=== PATIENT | female | born 2000 | race Caucasian/White ===

== ENCOUNTER 2022-10-27 22:15 | Emergency (ER) | payer MEDICAID, SELFPAY ==
[2022-10-27 22:17] VITALS: BP 108/62; PULSE 92; RESP 14; TEMP 36.6; O2SAT 99; BMI 25.5
[2022-10-27 22:46] LABS: Mucous, Urine 0 SEEN /hpf (<or=2+); Red Blood Cells-Urine 0 SEEN /hpf (0-5); White Blood Cells 0 SEEN /hpf (0-5)
[2022-10-27 22:49] LABS: Color, Urine Yellow (Yellow); Glucose, Dipstick Normal (Normal); Ketone-Dipstick Negative (Negative); Leukocyte Esterase-Dipstick Negative /ul (Negative); Nitrite-Dipstick Negative (Negative); Occult Blood-Urine Negative /ul (Negative); Protein-Dipstick 15 mg/dl (Negative); Specific Gravity, Urine 1.015 (1.002-1.030); Urine Bilirubin Dipstick Negative (Negative); Urine Clarity Sl. Cloudy (Clear); Urine Urobilinogen Normal (Normal)
[2022-10-27 23:00] LABS: Amorphous Sediment 1+; Bacteria 1+ /hpf (None Seen); Squamous Epithelial Cells - UA 0-5 SEEN /hpf (5-10)
--- NOTE | 2022-10-27 23:00 | US_ITS ---
INDICATION: RT FLANK PAIN, UTI, EXAMINATION: Ultrasound US Kidney(s) complete (eg, kidneys and bladder) TECHNIQUE: Issa scale and color doppler images were obtained of the kidneys. COMPARISON: None. FINDINGS: RIGHT KIDNEY: 12.7 x 7.6 x 5.2 cm. Mild hydronephrosis. No shadowing calculus, focal lesion or perinephric collection is demonstrated. LEFT KIDNEY: 11.2 x 6.6 x 4.5 cm. There is no hydronephrosis. No shadowing calculus, focal lesion or perinephric collection is demonstrated. URINARY BLADDER: No acute abnormality. US/Kidney and Bladder IMPRESSION: Mild right hydronephrosis. Electronically Signed: Cristi Patel MD at 0:32 EDT ,
[2022-10-27] MEDS: Ondansetron ODT 4 MG Tablet 8 MG PO (23:05)
[2022-10-27] MEDS: Acetaminophen 500 MG Tablet 1000 MG PO (23:05)
--- NOTE | 2022-10-27 23:33 | EX.ED.DYSGE1 ---
HPI History of Present Illness Chief Complaint: Flank Pain Informant: patient Onset/Context/Timing Onset: Weeks (2) Context: Gradual Onset Timing: Continuous Narrative Narrative: Patient has had urinary symptoms for 2 weeks, foul smell, burning, frequency, urgency and the feeling that she is unable to empty her bladder. Also has pain in her right low back and feels like it is kidney pain, in addition to vaginal discharge that feels like prior yeast infections, it started at similar time to all of the symptoms although she has had it after starting antibiotics for urine infections in the past. She is around 17 weeks, not feeling the baby move as much today. No vaginal bleeding. When she developed these symptoms, she was in drug rehab at [facility], they checked a urinalysis and was infected and started her on an antibiotic but she was unable to get the prescription and finish the course when she got out. She has had some nausea with the and taking Zofran for that, no vomiting, no fevers or chills. No gross hematuria. [facility] Medical History Opioid abuse Home Medications buprenorphine HCl 8 mg sublingual tablet See Rx Instructions sublingual DAILY 10/27/22 [History Last Taken 10/27/22] ondansetron 4 mg disintegrating tablet 4 mg PO DAILY 10/27/22 [History Last Taken 10/27/22] clotrimazole 1 % vaginal cream (Clotrimazole-7) 1 appful vaginal QHS 7 days #45 grams 10/28/22 [Rx Last Taken Unknown] Allergy/AdvReac Type Severity Reaction Status Date / Time No Known Allergies Allergy Verified 10/27/22 22:59 Social History Smoking Status: Current every day smoker tobacco type: cigarettes ROS ROS ED Constitutional Constitutional ED: Denies chills or fever(s) Eyes Eyes: Denies change in vision or diplopia ENT ENT ED: Denies rhinorrhea or sore throat Cardiovascular Cardiovascular: Denies chest pain or palpitations Respiratory/Chest Respiratory/Chest: Denies cough or dyspnea Gastrointestinal Gastrointestinal: Reports nausea; Denies abdominal pain, diarrhea or vomiting Genitourinary Genitourinary ED: Reports as per HPI, dysuria and urinary frequency; Denies hematuria Musculoskeletal Musculoskeletal: Reports back pain; Denies neck pain Integumentary Denies abscess or rash Neurologic Neurologic: Denies headache(s), paresthesias or weakness Psychiatric Psychiatric: Denies anxiety or suicidal thoughts EXAM Physical Exam Const Vital Signs: 10/27/22 22:17 Temperature 97.8 F Temperature Source Temporal Pulse Rate 92 Respiratory Rate 14 Blood Pressure 108/62 Blood Pressure Mean 77 Pulse Ox 99 Oxygen Delivery Method Room Air Positive well nourished and well developed Constitutional Narrative: Well-appearing General Appearance ED: well developed and NAD HEENT Reports moist mucous membranes normocephalic and atraumatic Eyes PERRL and EOMs intact bilaterally Neck full ROM and supple Resp normal respiratory effort and clear to auscultation bilaterally Cardio regular rate, regular rhythm and no murmurs Rate: Negative for tachycardic GI non-tender GI Narrative: Distended to around the umbilicus, consistent with second trimester gravid uterus Auscultation: normoactive bowel sounds Palpation: soft Back/Spine General Back: CVA tenderness right and other FROM Extremity normal to inspection General Extremety ED: Negative for edema, pulses abnormal or tenderness General Extremity: Negative for edema or pulses abnormal Neuro oriented x3, CN's II-XII intact bilaterally and no sensory deficits noted Sensorium / Orientation: awake and alert Motor Exam: strength 5/5 throughout Skin no rashes or lesions noted and no wounds MDM MDM MDM Narrative Medical decision making narrative: Certainly there is concern for possible pyelonephritis here, however the patient's urinalysis shows no signs of infection or pyuria, making pyelonephritis much less likely. She is well-appearing her vital signs are normal and she does not appear to be ill as I would expect someone with pyelonephritis after 2 weeks to be. I did obtain an ultrasound of her kidney, to evaluate for hydronephrosis given that urolithiasis is also in the differential diagnosis here. We did do heart tones, they are 120. I reviewed the ultrasound images as well as the report and agree with it, basically mild right hydronephrosis. Given this, urolithiasis is still in the differential. I do not think she needs to be admitted for that she is doing well after Tylenol. Vital signs remain normal. We will give her prescription for clotrimazole topically to use for her likely yeast infection, and advised close outpatient follow-up with urology if she is not able to have resolution of her pain, I will give her urine filters to go home with. Given that the hydronephrosis is mild, I think she is less likely to have an obstructed ureter related to but that would be in the differential as well. She is comfortable with that plan. Lab Data Attestation: I reviewed the patient's lab results. Labs: Laboratory Results - last 24 hr 10/27/22 22:40 Urine Color Yellow Urine Clarity Sl. Cloudy Urine pH 7.0 Ur Specific Temple 1.015 Urine Protein 15 H Urine Glucose (UA) Normal Urine Ketones Negative Urine Occult Blood Negative Urine Nitrite Negative Urine Bilirubin Negative Urine Urobilinogen Normal Ur Leukocyte Esterase Negative Urine RBC 0 SEEN Urine WBC 0 SEEN Ur Squamous Epith Cells 0-5 SEEN Amorphous Sediment 1+ Urine Bacteria 1+ Urine Mucus 0 SEEN Radiography Diagnostic Testing: Clinical Impression(s) from Imaging Studies Renal Ultrasound 10/27/22 23:00 IMPRESSION: Mild right hydronephrosis. Electronically Signed: Cristi Patel MD at 0:32 EDT Reading Location ID and State: [address] [place] [address] Tel , Service support , Discharge Plan Triage Chief Complaint: Flank Pain ED Provider: Malik Madrigal Dx/Rx/DC Orders Clinical Impression: Candidiasis of vagina during , with hydronephrosis in second trimester, Renal colic on right side Instructions: ED Flank Pain, Uncertain Cause, ED MONIKA VAGINITIS Prescriptions: New clotrimazole [Clotrimazole-7] 1 % cream 1 appful vaginal QHS 7 Days Qty: 45 0RF No Action ondansetron 4 mg tablet,disintegrating 4 mg PO DAILY buprenorphine HCl 8 mg tablet, sublingual See Rx Instructions sublingual DAILY Rx Instructions: 12 sublingually daily; Primary Care Provider: Care Physician,No Primary Referrals: Daisha Goldsmith MD [Med Staff - Active Staff] - As soon as possible (unless your right low back pain resolves; and/or follow up with your OB) Activity Restrictions/Additional Instructions: Tylenol as needed for pain Disposition Disposition: Home, Self Care
[2022-10-28 00:35] VITALS: RESP 18
== END 2022-10-28 01:16 | disposition home or self-care (01) ==
PROVIDERS: Emergency Provider Emergency Medicine; Visit Provider Emergency Medicine
DX: O99.891 Other specified diseases and conditions complicating pregnancy (principal); Z3A.17 17 weeks gestation of pregnancy; N23 Unspecified renal colic; B37.9 Candidiasis, unspecified; R39.15 Urgency of urination; R35.0 Frequency of micturition; F17.210 Nicotine dependence, cigarettes, uncomplicated; O99.332 Smoking (tobacco) complicating pregnancy, second trimester; N13.30 Unspecified hydronephrosis; N89.8 Other specified noninflammatory disorders of vagina; R11.0 Nausea; R30.0 Dysuria
CPT/HCPCS: 76770; 81001; 99284

== ENCOUNTER 2022-11-28 08:55 | Outpatient (CLI) | payer MEDICAID, SELFPAY ==
[2022-11-28 09:11] VITALS: BP 116/55; PULSE 91; TEMP 36.8
--- NOTE | 2022-11-28 09:35 | US_ITS ---
INDICATION: r/o kidney stone -- LEFT FLANK PAIN EXAMINATION: Ultrasound US Kidney(s) complete (eg, kidneys and bladder) TECHNIQUE: Issa scale and color doppler images were obtained of the kidneys. COMPARISON: Previous of 10/27/2022. FINDINGS: RIGHT KIDNEY: 12 x 6.5 x 6.3 cm. The renal cortex measures 1.6 cm. There again is mild right hydronephrosis. No shadowing calculus, focal lesion or perinephric collection is demonstrated. LEFT KIDNEY: 11.7 x 6 x 5.3 cm. The renal cortex measures 1.4 cm. There is mild left hydronephrosis. No shadowing calculus, focal lesion or perinephric collection is demonstrated. URINARY BLADDER: The bladder is not distended. US/Kidney and Bladder IMPRESSION: Mild bilateral hydronephrosis. Electronically Signed: Josh Coyle MD at 11:41 EDT ,
[2022-11-28 09:46] VITALS: BMI 27.6
[2022-11-28 10:04] LABS: Mucous, Urine 0 SEEN /hpf (<or=2+)
[2022-11-28] MEDS: LACTATED RINGERS 500 ML 999 ML IV (10:11)
[2022-11-28] MEDS: Lactated Ringers 1,000 ML 125 ML IV (10:12)
[2022-11-28] MEDS: Acetaminophen 500 MG Tablet 1000 MG PO (10:22)
[2022-11-28 10:38] LABS: Color, Urine Yellow (Yellow); Glucose, Dipstick Normal (Normal); Ketone-Dipstick Negative (Negative); Leukocyte Esterase-Dipstick 25 /ul (Negative); Nitrite-Dipstick Negative (Negative); Occult Blood-Urine 250 /ul (Negative); Protein-Dipstick 30 mg/dl (Negative); Specific Gravity, Urine 1.015 (1.002-1.030); Urine Bilirubin Dipstick Negative (Negative); Urine Clarity Cloudy (Clear); Urine Urobilinogen Normal (Normal); Urine pH 6.5 (5.0 - 8.0)
[2022-11-28 10:52] LABS: Bacteria 2+ /hpf (None Seen); Red Blood Cells-Urine 25-50 SEEN /hpf (0-5); Squamous Epithelial Cells - UA 5-10 SEEN /hpf (5-10); White Blood Cells 0-5 SEEN /hpf (0-5)
[2022-11-28] MEDS: Cefazolin 1 GM/50 ML BAG IV (11:49)
[2022-11-28 11:52] VITALS: BP 87/51; PULSE 76; TEMP 36.7
[2022-11-28 13:48] VITALS: BP 105/54; PULSE 78
[2022-11-28 16:10] LABS: Absolute Lymphocyte Count 1.85 X10^3/uL (0.83-4.51); Absolute Neutrophil Count 10.2 X10^3/uL (2.0-7.7); Basophil# 0.03 X10^3/uL; Basophil% 0.2 % (0-1); Eosinophil# 0.05 X10^3/uL; Eosinophils% 0.4 % (0-5); Lymphocyte # 1.85 X10^3/ul (0.83-4.51); Lymphocyte % 14.6 % (19-41); Mean Corp Hgb Conc 33.3 g/dL (32-36); Mean Corpuscular Hgb 31.1 pg (27.0-32.0); Mean Corpuscular Volume 93.2 fL (81-99); Mean Platelet Vol. 10.3 fl (6.2-12.0); Monocyte# 0.42 X10^3/uL; Monocyte% 3.3 % (0-10); NRBC Flagged by Analyzer 0 % (0-5); Neutrophil # 10.23 X10^3/uL (2.7-7.7); Neutrophil % 80.6 % (47-70); Platelet Count 214 K/mm3 (150-450); RBC Distribution Width CV 13.2 % (11.6-14.6); RBC Distribution Width SD 45.6 fl (35.1-43.9); Red Blood Count 3.22 M/mm3 (4.2-5.4); White Blood Count 12.7 K/mm3 (4.4-11.0)
[2022-11-28 16:49] VITALS: BP 100/55; PULSE 86
[2022-11-28 16:50] VITALS: TEMP 36.7
--- NOTE | 2022-11-28 16:59 | OB.TRI.NOTE ---
HPI - General HPI Narrative RENZO MANNING, is a 22 y/o @ 22 weeks gestation who presents to L&D with the complaint of flank pain. SHe denies nausea, vomiting, fevers or chills. Her OB is out of [facility] Medical History Opioid abuse Home Medications buprenorphine HCl 8 mg sublingual tablet See Rx Instructions sublingual DAILY 10/27/22 [History Last Taken 11/27/22 09:00 12 mg] ondansetron 4 mg disintegrating tablet 4 mg PO DAILY 10/27/22 [History Last Taken 10/27/22] clotrimazole 1 % vaginal cream (Clotrimazole-7) 1 appful vaginal QHS 7 days #45 grams 10/28/22 [Rx Last Taken Unknown] cephalexin 500 mg capsule 500 mg PO BID #14 caps 11/28/22 [Rx Last Taken Unknown] vit no.95-ferrous fumarate 28 mg-folic acid 800 mcg tablet () tab PO 11/28/22 [History Last Taken 11/27/22 09:00 1 TAB] Allergy/AdvReac Type Severity Reaction Status Date / Time No Known Allergies Allergy Verified 11/28/22 09:21 Social History Smoking Status: Current every day smoker tobacco type: cigarettes ROS Constitutional Constitutional: Reports systems reviewed and no addt'l complaints, except as documented Gastrointestinal Gastrointestinal: Denies bloating, constipation, cramping, diarrhea, nausea or vomiting Genitourinary Genitourinary: Reports other Details: Denies vaginal odor, vaginal bleeding, or vaginal discharge ; Denies difficulty urinating NST FHR Rate Baby A Baseline: 140 Variability:: Moderate Decelerations:: None FHR Category:: Category I Assessment & Plan (1) UTI in , antepartum: PLAN: normal renal ultrasound and no signs of leukocytosis sending home with keflex and instruction to follow up with her primary OB next week. Charges/Coding Multi Select Codes Urinary/Genital Urinary/Genital CPT Codes: 07288-41 non-stress test Interp
[2022-11-28 21:39] LABS: ALB/GLOB Ratio 0.8 RATIO (0.9-2.4); AST(SGOT) 6 U/L (15-37); Alanine Aminotransfer ALT/SGPT 12 U/L (13-56); Albumin, Serum 2.4 g/dL (3.2-5.0); Alkaline Phosphatase 44 U/L (45-117); Anion Gap 3 (5-15); BUN 8 mg/dL (7-18); BUN/Creat Ratio 15.4 RATIO (10-20); Chloride 112 mmol/L (98-107); Creatinine, Serum 0.52 mg/dL (0.55-1.02); EST Glomerular Filtration Rate 153 mL/min (>60); Est Glom Filt Rate - Afr Amer 185 mL/min (>60); Estimated Creatinine Clearance 125.88 ml/min; Globulin 2.9 g/dL (2.2-4.2); Glucose 163 mg/dL (74-106); Potassium 3.8 mmol/L (3.5-5.1); Protein, Total 5.3 g/dL (6.4-8.2); Sodium Level 139 mmol/L (136-145)
== END 2022-11-28 16:50 | disposition home or self-care (01) ==
LOC: WPOUT 09:08 → WP 09:09
PROVIDERS: Registered Nurse; Referring Provider Obstetrics & Gynecology; Visit Provider Obstetrics & Gynecology
DX: O23.42 Unspecified infection of urinary tract in pregnancy, second trimester (principal); Z3A.22 22 weeks gestation of pregnancy; F17.210 Nicotine dependence, cigarettes, uncomplicated; O99.332 Smoking (tobacco) complicating pregnancy, second trimester
CPT/HCPCS: 96365; 96361; 36415; 59025; 59050; 76770; 80053; 81001; 85025; 87086; 99221; J7120; G0378